=== PATIENT | female | born 1980 | race Caucasian/White ===

== ENCOUNTER → 2018-09-09 | Outpatient (CLI) | payer OTHER, SELFPAY ==
--- NOTE | 2018-09-09 12:49 | REP ---
Right foot four views : There is no fracture or dislocation. Mineralization and joint spaces are normal. There are no calcifications or foreign bodies. Impression: Negative right foot . There is a small calcaneal plantar spur. Electronically Signed by Te Moreno MD 09/09/2018 12:40 P
--- NOTE | 2018-09-09 12:50 | REP ---
Right tibia-fibula two views : There is no fracture or dislocation. Mineralization and joint spaces are normal. There are no calcifications or foreign bodies. Impression: Negative Right tibia-fibula . Electronically Signed by Te Moreno MD 09/09/2018 12:41 P
--- NOTE | 2018-09-09 13:05 | REP ---
Right ankle four views : There is no fracture or dislocation. Mineralization and joint spaces are normal. There are no calcifications or foreign bodies. There is a small calcaneal plantar spur. Impression: Negative right ankle . There is a small calcaneal plantar spur. Electronically Signed by Te Moreno MD 09/09/2018 12:57 P
== END ==
LOC: M LRY 11:52
PROVIDERS: ATTEND Physician Assistant
DX: M77.31 Calcaneal spur, right foot (principal); M79.671 Pain in right foot; S89.91XA Unspecified injury of right lower leg, initial encounter; X58.XXXA Exposure to other specified factors, initial encounter; Y92.9 Unspecified place or not applicable; Y93.9 Activity, unspecified; Y99.9 Unspecified external cause status
CPT/HCPCS: 73590; 73610; 73630; G0463

== ENCOUNTER 2018-11-21 20:20 | Emergency (ER) | payer OTHER, SELFPAY ==
[~2018-11-21] VITALS: Ht 167.6 cm; Wt 76.4 kg
[2018-11-21] MEDS ORDERED: NS 1,000 ML IV ONE (22:15)
[2018-11-21 22:24] LABS: BASO % 0.5 % (0.0-1.0); EOS # 0.1 10^3/uL (0.0-0.5); HEMATOCRIT 38.8 % (36.0-47.0); HEMOGLOBIN 13.1 g/dl (12.0-15.5); LYMPH # 3.9 10^3/uL (1.5-5.0); MEAN CORPUSCULAR HEMOGLOBIN 30.9 pg (27.0-33.0); MEAN CORPUSCULAR HGB CONC 33.8 g/dl (32.0-36.5); MEAN CORPUSCULAR VOLUME 91.5 fl (80.0-96.0); MONO # 0.5 10^3/uL (0.0-0.8); MONO % 6.1 % (0.0-5.0); NEUTROPHILS # 4.1 10^3/uL (1.5-8.5); NEUTROPHILS % 47.2 % (36.0-66.0); PLATELET COUNT, AUTOMATED 367 10^3/uL (150-450); RED BLOOD COUNT 4.24 10^6/uL (4.00-5.40); WHITE BLOOD COUNT 8.7 10^3/uL (4.0-10.0)
[2018-11-21 22:28] LABS: INR 1.15; PARTIAL THROMBOPLASTIN TIME 26.3 SECONDS (25.0-38.4); PROTHROMBIN TIME 14.5 SECONDS (11.8-14.0)
[2018-11-21 22:38] LABS: ALBUMIN 3.8 GM/DL (3.2-5.2); ALT/SGPT 41 U/L (12-78); BILIRUBIN,DIRECT 0.1 MG/DL (0.0-0.2); BILIRUBIN,TOTAL 0.4 MG/DL (0.2-1.0); BLOOD UREA NITROGEN 15 MG/DL (7-18); CALCIUM LEVEL 8.6 MG/DL (8.5-10.1); CARBON DIOXIDE LEVEL 30 MEQ/L (21-32); CHLORIDE LEVEL 105 MEQ/L (98-107); GLOMERULAR FILTRATION RATE 41.2 (>60); GLUCOSE, FASTING 110 MG/DL (70-100); HCG, SERUM QUANTITATIVE < 1.0 MIU/ML; LIPASE 145 U/L (73-393); POTASSIUM SERUM 3.7 MEQ/L (3.5-5.1); SODIUM LEVEL 140 MEQ/L (136-145); TOTAL PROTEIN 7.4 GM/DL (6.4-8.2)
[2018-11-21 23:50] LABS: APPEARANCE, URINE CLEAR (CLEAR); BACTERIA, URINE AUTO 1+ (NEGATIVE); BILIRUBIN, URINE AUTO NEGATIVE (NEGATIVE); BLOOD, URINE BLOOD NEGATIVE (NEGATIVE); COLOR, URINE STRAW (YELLOW); GLUCOSE, URINE (UA) AUTO NEGATIVE (NEGATIVE); KETONE, URINE AUTO NEGATIVE (NEGATIVE); LEUKOCYTE ESTERASE, URINE AUTO NEGATIVE (NEGATIVE); NITRITE, URINE AUTO NEGATIVE (NEGATIVE); PROTEIN, URINE AUTO NEGATIVE (NEGATIVE); RBC, URINE AUTO 0 /HPF (0-3); SPECIFIC GRAVITY URINE AUTO 1.008 (1.002-1.035); SQUAMOUS EPITHELIAL CELL UR AU 1 /HPF (0-6); UROBILINOGEN, URINE AUTO 0.2 mg/dL (0.0-2.0); WBC, URINE AUTO 1 /HPF (0-3)
[2018-11-22 00:08] LABS: CHLAMYDIA DNA AMPLIFICATION NEGATIVE (NEGATIVE); GC DNA AMPLIFICATION NEGATIVE (NEGATIVE)
--- NOTE | 2018-11-22 00:10 | REPVR ---
PROCEDURE INFORMATION: Exam: US Pelvis Complete, Transabdominal Exam date and time: 11/21/2018 11:30 PM Clinical history: 38 years old, female; Pelvic pain; Additional info: R salpinx pain TECHNIQUE: Imaging protocol: Real-time transabdominal pelvic ultrasound with image documentation. Complete exam. COMPARISON: No relevant prior studies available. FINDINGS: Uterus/cervix: Uterus measures 9.9 x 3.8 x 5.3 cm. Endometrium measures 6 mm. Endometrium is unremarkable. No uterine or endometrial masses. Right adnexa: There is a 4.0 cm septated cyst in the right ovary. No right ovarian mass. Normal blood flow. No hydrosalpinx. Left adnexa: Ovary is normal. No mass. Normal blood flow. No hydrosalpinx. Free fluid: Trace free fluid in the cul-de-sac. Bladder: Normal. IMPRESSION: 1. 4.0 cm septated cyst in the right ovary. Consider followup in 6 weeks to ensure resolution. 2. Otherwise unremarkable pelvic ultrasound. Electronically signed by: Castillo Chance On 11/22/2018 00:09:37 AM
[2018-11-22] MEDS ORDERED: FLAG500T PO (00:35)
[2018-11-22 00:39] VITALS: BP 109/56
--- NOTE | 2018-11-24 07:18 | ED PDOC ---
Post-Departure Follow-Up ft bimal ob faxed formal report of pelvic us for fu Barbara Ch MD Nov 24, 2018 07:18
--- NOTE | 2018-11-24 07:20 | ED PDOC ---
Post-Departure Follow-Up dr lee ann carrasco - faxed formal report of pelvic us for fu Barbara Ch MD Nov 24, 2018 07:20
== END 2018-11-22 00:49 | disposition home or self-care (01) ==
LOC: M ED 20:20
DX: N83.291 Other ovarian cyst, right side (principal); N77.1 Vaginitis, vulvitis and vulvovaginitis in diseases classified elsewhere; E86.0 Dehydration; E03.9 Hypothyroidism, unspecified; K58.9 Irritable bowel syndrome, unspecified

== ENCOUNTER → 2020-04-30 | Outpatient (CLI) | payer OTHER ==
[~2020-04-30] MED LIST: FLAG500T PO
--- NOTE | 2020-04-30 08:36 | REPVR ---
PROCEDURE INFORMATION: Exam: MR Cervical Spine Without Contrast Exam date and time: 04/30/2020 7:47 AM Age: 39 years old Clinical indication: Neck pain; Additional info: Cervical spondylosis, R/O hnp/stenosis TECHNIQUE: Imaging protocol: Multiplanar magnetic resonance images of the cervical spine without contrast. COMPARISON: No relevant prior studies available. FINDINGS: Vertebrae: Unremarkable. Spinal cord: Normal signal. No cord compression. C2-C3: No significant disc disease. No significant spinal stenosis. C3-C4: No significant disc disease. No significant spinal stenosis. C4-C5: No significant disc disease. No significant spinal stenosis. C5-C6: There is a right posterior annular tear. C6-C7: There is a right posterior annular tear. C7-T1: No significant disc disease. No significant spinal stenosis. Soft tissues: Unremarkable. IMPRESSION: Small annular tears at C5/6 and C6/7. Electronically signed by: Eric Chao On 04/30/2020 08:36:31 AM
== END ==
LOC: M RAD 07:45
PROVIDERS: ATTEND Physician Assistant
DX: M47.892 Other spondylosis, cervical region (principal)

== ENCOUNTER → 2020-05-07 | Outpatient (CLI) | payer OTHER ==
[2020-05-07 15:34] LABS: URINE PREG TEST NEGATIVE (NEGATIVE)
[2020-05-07 15:35] LABS: PLATELET COUNT, AUTOMATED 441 10^3/uL (150-450)
[2020-05-07 15:44] LABS: INR 1.02; PARTIAL THROMBOPLASTIN TIME 29.2 SECONDS (24.2-38.5); PROTHROMBIN TIME 13.6 SECONDS (12.5-14.3)
[2020-05-07 16:09] LABS: COLLAGEN EPINEPHRINE 136 SECONDS (74-162)
== END ==
LOC: M PLALAB 14:08
PROVIDERS: ATTEND Physician Assistant
DX: M47.896 Other spondylosis, lumbar region (principal)

== ENCOUNTER → 2021-11-06 | Outpatient (CLI) | payer OTHER | LOC: M WHC 07:02 | PROVIDERS: ATTEND Family Medicine | DX: Z12.31 Encounter for screening mammogram for malignant neoplasm of breast (principal) ==

== ENCOUNTER 2021-11-20 08:11 | Day surgery (SDC) | payer OTHER ==
[~2021-11-20] VITALS: Ht 167.6 cm; Wt 78.9 kg
[2021-11-20] MEDS ORDERED: DULO1CAP6 PO (08:17)
[2021-11-20] MEDS ORDERED: LEVO100T5 (08:17)
[2021-11-20] MEDS ORDERED: PHEN1TAB73 PO (08:17)
[2021-11-20] MEDS ORDERED: ACET1TAB55 PO (08:17)
[2021-11-20] MEDS ORDERED: D 50CAP2 PO (08:17)
[2021-11-20] MEDS ORDERED: NITR100C2 PO (08:17)
[2021-11-20 10:03] LABS: BASO # 0.1 10^3/uL (0.0-0.2); BASO % 0.4 % (0.0-1.0); EOS % 0.2 % (0.0-3.0); HEMATOCRIT 38.4 % (36.0-47.0); HEMOGLOBIN 12.7 g/dl (12.0-15.5); LYMPH % 12.9 % (24.0-44.0); MEAN CORPUSCULAR HEMOGLOBIN 30.4 pg (27.0-33.0); MEAN CORPUSCULAR HGB CONC 33.1 g/dl (32.0-36.5); MEAN CORPUSCULAR VOLUME 91.9 fl (80.0-96.0); MONO # 0.6 10^3/uL (0.0-0.8); MONO % 3.8 % (2.0-8.0); NEUTROPHILS % 82.3 % (36.0-66.0); PLATELET COUNT, AUTOMATED 418 10^3/uL (150-450); RED BLOOD COUNT 4.18 10^6/uL (4.00-5.40); WHITE BLOOD COUNT 15.7 10^3/uL (4.0-10.0)
[2021-11-20 10:28] LABS: HCG, SERUM QUALITATIVE NEGATIVE (NEGATIVE)
[2021-11-20 10:36] LABS: ALT/SGPT 32 U/L (12-78); BILIRUBIN,DIRECT 0.1 MG/DL (0.0-0.2); BILIRUBIN,TOTAL 0.4 MG/DL (0.2-1.0); BLOOD UREA NITROGEN 12 MG/DL (7-18); CALCIUM LEVEL 9.5 MG/DL (8.5-10.1); CARBON DIOXIDE LEVEL 29 MEQ/L (21-32); CHLORIDE LEVEL 106 MEQ/L (98-107); CREATININE FOR GFR 0.79 MG/DL (0.55-1.30); GLOMERULAR FILTRATION RATE > 60.0 (>58); GLUCOSE, FASTING 108 MG/DL (70-100); LIPASE 136 U/L (73-393); POTASSIUM SERUM 5.8 MEQ/L (3.5-5.1); SODIUM LEVEL 138 MEQ/L (136-145); TOTAL PROTEIN 7.5 GM/DL (6.4-8.2)
[2021-11-20] MEDS ORDERED: NS 1,000 ML IV ONE (11:40)
[2021-11-20] MEDS ORDERED: KETOROLAC 30 MG/ML 1ML VIAL IV ONE (11:40)
[2021-11-20] MEDS ORDERED: ISOVUE-370 76% 100ML VIAL As Ordered ONE (11:55)
[2021-11-20] MEDS ORDERED: ONDANSETRON 4MG 2ML VIAL IV ONE (12:25)
[2021-11-20] MEDS ORDERED: PIPERACILLIN/TAZOBACTAM SOD 3.375 GM in D5W MINI-BAG PLUS 50 ML IV ONE (12:50)
[2021-11-20] MEDS ORDERED: POLY17PO18 PO (13:27)
[2021-11-20] MEDS ORDERED: VITMTA PO (13:27)
[2021-11-20] MEDS ORDERED: LEVO50TA5 PO (13:27)
[2021-11-20] MEDS ORDERED: HOME MED LIST COMPLETE! XX SCH (13:30)
[2021-11-20] MEDS ORDERED: MORPHINE 4 MG/ML 1ML VIAL/SYRINGE IV ONE (13:55)
[2021-11-20] MEDS ORDERED: LIDOCAINE 2% 100MG/5ML SDV (FOR ANES.) ONE (14:44)
[2021-11-20] MEDS ORDERED: propofoL 200 MG/20 ML VIAL ONE (14:44)
[2021-11-20] MEDS ORDERED: ROCURONIUM BROMIDE 50 MG/5 ML VIAL ONE (14:44)
[2021-11-20] MEDS ORDERED: PANTOPRAZOLE 40MG VIAL IV ONE (14:45)
[2021-11-20] MEDS ORDERED: MIDAZOLAM INJ 2MG/2ML VIAL (J2250 PER 1MG) ONE (14:45)
[2021-11-20] MEDS ORDERED: fentaNYL 100 MCG/2 ML INJECTION ONE (14:45)
[2021-11-20] MEDS ORDERED: HYDR-3713 PO (16:03)
[2021-11-20] MEDS ORDERED: ACETAMINOPHEN 1000MG 100ML IV BTL (OFIRMEV) (J0131 PER 10MG) ONE (16:12)
[2021-11-20] MEDS ORDERED: METOCLOPRAMIDE INJ 10MG/2ML VIAL (J2765 PER 1) ONE (16:12)
[2021-11-20] MEDS ORDERED: dexameTHASONE 4 MG/ML 1ML VIAL (J1100 PER 1MG) ONE (16:12)
[2021-11-20] MEDS ORDERED: ONDANSETRON 4MG 2ML VIAL ONE (16:12)
[2021-11-20] MEDS ORDERED: BUPIVACAINE/EPIN 0.25% 30 ML VIAL As Ordered ONE (16:39)
[2021-11-20] MEDS ORDERED: MORPHINE 2 MG/ML 1ML VIAL IV PRN (16:50)
[2021-11-20] MEDS ORDERED: ONDANSETRON 4MG 2ML VIAL IV PRN (16:50)
[2021-11-20] MEDS ORDERED: fentaNYL 100 MCG/2 ML INJECTION IV PRN (16:50)
[2021-11-20] MEDS ORDERED: LR 1,000 ML IV SCH (16:50)
[2021-11-20] MEDS ORDERED: oxyCODONE 5MG TAB PO PRN (16:50)
[2021-11-20] MEDS ORDERED: NORCO, ANEXSIA 5/325MG TABLET (HYDROcodone/ACETAMINOPHEN) PO PRN (17:20)
[2021-11-20 18:15] VITALS: BP 113/52
== END 2021-11-20 18:30 | disposition home or self-care (01) ==
LOC: M ED 08:11 → M SDC 08:12 → M ED 15:05 → M SDC 18:30
PROVIDERS: ATTEND Surgery
DX: K35.890 Other acute appendicitis without perforation or gangrene (principal); E03.9 Hypothyroidism, unspecified; K58.9 Irritable bowel syndrome, unspecified; N39.0 Urinary tract infection, site not specified; Z79.899 Other long term (current) drug therapy
CPT/HCPCS: 44970; 74177; 76830; 76856; 80048; 80076; 81000; 81015; 83605; 83690; 84702; 84703; 85025; 87040; 87086; 87635; 88304; 93976; 96365; 96375; 99284; C9113; J0131; J1100; J1885; J2250; J2270; J2405; J2543; J2765; J3010; Q9967

== ENCOUNTER → 2021-11-24 | Outpatient (CLI) | payer OTHER ==
[~2021-11-24] MED LIST changes: +ACET1TAB55 PO; +D 50CAP2 PO; +DULO1CAP6 PO; +HYDR-3713 PO; +LEVO100T5; +LEVO50TA5 PO; +NITR100C2 PO; +PHEN1TAB73 PO; +POLY17PO18 PO; +VITMTA PO
[2021-11-24 12:18] LABS: BASO # 0.1 10^3/uL (0.0-0.2); BASO % 0.6 % (0.0-1.0); EOS # 0.4 10^3/uL (0.0-0.5); EOS % 4.4 % (0.0-3.0); HEMATOCRIT 36.6 % (36.0-47.0); HEMOGLOBIN 11.8 g/dl (12.0-15.5); LYMPH # 2.5 10^3/uL (1.5-5.0); LYMPH % 31.2 % (24.0-44.0); MEAN CORPUSCULAR HEMOGLOBIN 29.8 pg (27.0-33.0); MEAN CORPUSCULAR HGB CONC 32.2 g/dl (32.0-36.5); MEAN CORPUSCULAR VOLUME 92.4 fl (80.0-96.0); MONO # 0.5 10^3/uL (0.0-0.8); MONO % 5.9 % (2.0-8.0); NEUTROPHILS # 4.7 10^3/uL (1.5-8.5); NEUTROPHILS % 57.5 % (36.0-66.0); PLATELET COUNT, AUTOMATED 432 10^3/uL (150-450); RED BLOOD COUNT 3.96 10^6/uL (4.00-5.40); WHITE BLOOD COUNT 8.1 10^3/uL (4.0-10.0)
[2021-11-24 12:54] LABS: ALBUMIN 3.5 GM/DL (3.2-5.2); ALT/SGPT 40 U/L (12-78); BILIRUBIN,TOTAL 0.3 MG/DL (0.2-1.0); BLOOD UREA NITROGEN 7 MG/DL (7-18); CALCIUM LEVEL 9.2 MG/DL (8.5-10.1); CARBON DIOXIDE LEVEL 31 MEQ/L (21-32); CHLORIDE LEVEL 106 MEQ/L (98-107); CREATININE FOR GFR 0.74 MG/DL (0.55-1.30); GLOMERULAR FILTRATION RATE > 60.0 (>58); GLUCOSE, FASTING 90 MG/DL (70-100); POTASSIUM SERUM 4.8 MEQ/L (3.5-5.1); SODIUM LEVEL 139 MEQ/L (136-145); TOTAL PROTEIN 6.9 GM/DL (6.4-8.2)
== END ==
LOC: M LAB 11:46
PROVIDERS: ATTEND Physician Assistant
DX: K35.80 Unspecified acute appendicitis (principal)

== ENCOUNTER → 2022-04-30 | Outpatient (CLI) | payer OTHER ==
[~2022-04-30] MED LIST changes: +ISOVUE-370 76% 100ML VIAL As Ordered ONE
== END ==
LOC: M RAD 15:17
PROVIDERS: ATTEND Internal Medicine Endocrinology, Diabetes & Metabolism
DX: D35.02 Benign neoplasm of left adrenal gland (principal)
CPT/HCPCS: 74170; Q9967

== ENCOUNTER → 2023-03-22 | Outpatient (CLI) | payer OTHER ==
[~2023-03-22] MED LIST changes: -ISOVUE-370 76% 100ML VIAL As Ordered ONE
== END ==
LOC: M RAD 16:34
PROVIDERS: ATTEND Nurse Practitioner Family
DX: D35.02 Benign neoplasm of left adrenal gland (principal)

== ENCOUNTER → 2023-06-01 | Outpatient (CLI) | payer OTHER ==
[~2023-06-01] MED LIST changes: +ISOVUE-300 61% 100ML VIAL As Ordered ONE; +LIDOCAINE 1% MDV 20ML VIAL As Ordered ONE; +PROHANCE 279.3MG/ML 15ML VIAL As Ordered ONE; +PROHANCE 279.3MG/ML 5ML VIAL As Ordered ONE
== END ==
LOC: M RAD 06:25
PROVIDERS: ATTEND Family Medicine
DX: M25.511 Pain in right shoulder (principal); S43.401A Unspecified sprain of right shoulder joint, initial encounter; X58.XXXA Exposure to other specified factors, initial encounter; Y92.9 Unspecified place or not applicable
CPT/HCPCS: 23350; 73223; 77002; A9576; Q9967